=== PATIENT | male | born 1970 | race Caucasian/White ===

== ENCOUNTER 2022-03-12 21:50 | Outpatient (CLI) | payer MEDICARE, MEDICAID, SELFPAY | END 2022-03-12 21:51 | disposition home or self-care (01) | LOC: AMB 03-27 11:12 | PROVIDERS: PCP Internal Medicine; Visit Provider Emergency Medicine Emergency Medical Services | DX: R55 Syncope and collapse (principal) | CPT/HCPCS: A0998 ==

== ENCOUNTER 2023-01-08 11:19 | Outpatient (RCR) | payer MEDICAID, SELFPAY | END 2024-01-08 16:21 | disposition home or self-care (01) | LOC: MOW 11:19 | PROVIDERS: PCP Internal Medicine; Visit Provider Internal Medicine | DX: Z76.0 Encounter for issue of repeat prescription (principal) | CPT/HCPCS: S5170 ==

== ENCOUNTER 2024-01-09 14:42 | Outpatient (RCR) | payer MEDICAID, SELFPAY | END 2025-01-08 10:29 | disposition home or self-care (01) | LOC: MOW 14:42 | PROVIDERS: PCP Internal Medicine; Visit Provider Internal Medicine | DX: Z76.0 Encounter for issue of repeat prescription (principal) | CPT/HCPCS: S5170 ==

== ENCOUNTER 2024-02-19 19:42 | Emergency (ER) | payer MEDICARE, MEDICAID, SELFPAY ==
[2024-02-19 20:02] VITALS: BP 135/91; PULSE 103; RESP 22; TEMP 37.6; O2SAT 97; BMI 19.1
--- NOTE | 2024-02-19 20:26 | ED_ITS ---
HPI - Ear Problem General Time Seen by Provider: 20:26 Date Seen: 02/19/24 Chief complaint: Ear/Nose/Throat Problem Stated complaint: L ear pain Time Seen by Provider: 02/19/24 20:25 Source: patient and RN notes reviewed Mode of arrival: ambulatory Limitations: no limitations History of Present Illness HPI Narrative: Eliazar is a very pleasant 53-year-old gentleman who notes left ear pain starting last evening. He states he had been dealing with a runny nose. He says he has felt hot and has had a fever but did not take his temperature. He has not had any vomiting. He has not had a cough or sore throat. Patient notes to nursing staff that he walked here. Denies previous history of ear problems. Related Data Home Medications ?Medication ?Instructions ?Recorded ?Confirmed No Known Home Medications 02/19/24 02/19/24 Allergies Allergy/AdvReac Type Severity Reaction Status Date / Time No Known Drug Allergies Allergy Verified 02/19/24 20:07 Review of Systems Status of ROS: Reports: 6 or more systems reviewed and unremarkable except as noted in History and below PFSH PFSH Social History Smoking Status: Heavy tobacco smoker What tobacco products do you use: cigarettes Smoking packs per day: 2 Smoking cigarettes per day: 40.0 Years smoked: 30 Smoking pack-years: 60.00 Do you use any of these nicotine containing products: None Second hand tobacco smoke exposure: No How often do you have a drink containing alcohol: monthly or less AUDIT-C Alcohol total score: 1 Non-prescribed substance use: denies use Exam Narrative: Exam Narrative: Patient is alert and oriented. Very pleasant gentleman. No acute distress. Eyes are clear. TMs bilaterally are not visible due to large amount of cerumen. No pain with manipulation of the external ear. Neck is supple without lymphadenopathy. Oral cavity with moist mucous membranes. No significant erythema or exudate in the posterior oropharynx. Neck is supple. Lungs are clear to auscultation. Heart with regular rate and rhythm. Moving all extremities. Const: Vital Signs, click to edit/add: Vital Signs - 24 hr 02/19/24 20:02 Temperature 99.7 F H Pulse Rate [Pulse Oximeter] 103 H Respiratory Rate 22 Blood Pressure [Ri ght Upper Arm] 135/91 H Pulse Oximetry 97 Oxygen Delivery Me thod Room Air Documenting provider has reviewed patient's vital signs: yes Course Course ED Course: Differential diagnosis includes but is not limited to cerumen impaction, otitis externa, otitis media, ruptured TM. Will irrigate left ear so as to remove wax in visualize TM. Patient agreement with this plan. Vital Signs Vital signs: Initial Vital Signs Temperature 99.7 F H 02/19/24 20:02 Temperature Source Temporal Artery Scan 02/19/24 20:02 Pulse Rate 103 H 02/19/24 20:02 Respiratory Rate 22 02/19/24 20:02 Blood Pressure 135/91 H 02/19/24 20:02 Blood Pressure Mean 105 02/19/24 20:02 Blood Pressure Position Sitting 02/19/24 20:02 Pulse Oximetry 97 02/19/24 20:02 Oxygen Delivery Method Room Air 02/19/24 20:02 Vital Signs Temperature 99.7 F H 02/19/24 20:02 Pulse Rate 103 H 02/19/24 20:02 Respiratory Rate 22 02/19/24 20:02 Blood Pressure 135/91 H 02/19/24 20:02 Pulse Oximetry 97 02/19/24 20:02 Oxygen Delivery Method Room Air 02/19/24 20:02 Temperature 99.7 F H 02/19/24 20:02 Pulse Rate 103 H 02/19/24 20:02 Respiratory Rate 22 02/19/24 20:02 Blood Pressure 135/91 H 02/19/24 20:02 Pulse Oximetry 97 02/19/24 20:02 Oxygen Delivery Method Room Air 02/19/24 20:02 Medical Decision Making MDM Narrative Medical decision making narrative: 1. Cerumen impaction-bilateral. Left worse than the right. Following irrigation patient notes that he is feeling much better. There is still some wax left in the ears and therefore do recommend follow-up for recheck at the clinic. However, I hesitate to do any more irrigating tonight as this can be traumatic to delicate tissues. 2. Left ear pain-no evidence of otitis externa or otitis media after irrigation of the ear. Continue to monitor. Seek medical attention for worsening symptoms. Will send Eliazar home with Tylenol 1000 mg to be taken if needed ear pain returns. If this should occur he needs to be seen at the emergency room or at his clinic for recheck. 3. Disposition-home at this time. We will try to get a taxi voucher so Eliazar does not have to walk home. He lives [address]. Discharge Plan Discharge Clinical Impression: Cerumen impaction, Otalgia of left ear Patient Disposition: Home, Self-Care Condition: Improved Additional Instructions: Follow-up at the clinic or return to the emergency room if your ear is hurting again or you start running a fever. Today there was no evidence of an ear infection. There is still some wax in the left ear but I could see the ear drum and it looked normal. We will send some Tylenol home with you. You may take 2 tablets if needed for the pain. Return to the emergency room as needed. Prescriptions: No Action No Known Home Medications Follow Up/Referrals: Ivan Kennedy MD [Primary Care Provider] - Stand Alone Forms: [employer] Info Instructions
[2024-02-19] MEDS: ACETAMINOPHEN 500 MG TABLET 1000 MG PO (21:44)
== END 2024-02-19 21:45 | disposition home or self-care (01) ==
PROVIDERS: Emergency Provider Family Medicine; PCP Internal Medicine
DX: H92.02 Otalgia, left ear (principal); H61.23 Impacted cerumen, bilateral
CPT/HCPCS: 69209; 99283; A9270